=== PATIENT | male | born 1970 | race Caucasian/White ===

== ENCOUNTER 2016-10-29 16:05 | Outpatient (CLI) | payer OTHER ==
--- NOTE | 2016-10-29 16:37 | DIAGNOSTIC IMAGING REPORT ---
PROCEDURE: XR LUMBAR SPINE 2 OR 3 VIEWS INDICATION: LOW BACK PAIN TECHNIQUE: Three views. COMPARISON: None. FINDINGS: Compression fracture of T12 which involves 50% of the vertebral body height. Mild spondylosis with narrowing at L4-5 and scattered osteophytes. IMPRESSION: 1. T12 compression fracture. 50% of the vertebral body.
== END 2016-10-29 23:00 | disposition home or self-care (01) ==
LOC: LAB SRH 16:05 → XR SRH 16:05
DX: M48.54XA Collapsed vertebra, not elsewhere classified, thoracic region, initial encounter for fracture (principal)